=== PATIENT | female | born 1960 | race African-American/Black ===

== ENCOUNTER 2017-11-08 21:48 | Emergency (ER) | payer BC ==
[~2017-11-08] VITALS: Ht 170.2 cm; Wt 116.0 kg
[2017-11-09] MEDS ORDERED: IBUPROFEN 600MG TABLET PO ONE (02:45)
[2017-11-09] MEDS ORDERED: TETANUS, DIPHTHERIA, PERTUSSIS VAC/PF 0.5ML (>7YR OLD) IM ONE (02:45)
[2017-11-09] MEDS ORDERED: BACITRACIN ZINC OINT UDPKT TOP ONE (02:45)
[2017-11-09 03:08] VITALS: BP 141/80
== END 2017-11-09 03:08 | disposition home or self-care (01) ==
LOC: ER 21:48
DX: L03.115 Cellulitis of right lower limb (principal); I10 Essential (primary) hypertension
CPT/HCPCS: 90471; 90715; 99283